=== PATIENT | female | born 1945 | race Caucasian/White ===

== ENCOUNTER 2018-02-19 06:14 | Day surgery (SDC) | payer OTHER ==
[~2018-02-19] VITALS: Ht 160 cm; Wt 68.9 kg
[~2018-02-19 06:14] MED LIST: ASPIRIN81 M2 PO; CALCIUM 500-VI1 EACH PO; COREG12.5 M1 PO; HYZAAR 100-21 TABLET PO; K-DUR20 MEQ PO; MULTIPLE VITAM1 EACH PO; NORVASC10 MG PO; OMEGA 3 500 SO1 EACH PO; VITAMIN D31000 UNIT PO; ZOCOR20 MG PO
[2018-02-19 06:46] VITALS: BP 116/72
[2018-02-19] MEDS ORDERED: HYDROCODON-ACE1 EAC7 PO (10:49)
[2018-02-19 11:55] VITALS: BP 134/75
[2018-02-19 12:45] VITALS: BP 106/62
[2018-02-19 13:35] VITALS: BP 109/60
== END 2018-02-19 13:35 | disposition home or self-care (01) ==
LOC: SDC 06:14
DX: D24.1 Benign neoplasm of right breast (principal); N60.81 Other benign mammary dysplasias of right breast; I10 Essential (primary) hypertension; E78.5 Hyperlipidemia, unspecified; Z79.82 Long term (current) use of aspirin; F17.200 Nicotine dependence, unspecified, uncomplicated
CPT/HCPCS: 88307; J0690; J1100; J2405; J3010; J7643; S0020